=== PATIENT | male | born 1995 | race Two or more races ===

== ENCOUNTER 2016-06-22 19:16 | Emergency (ER) | payer MEDICAID ==
[~2016-06-22] VITALS: Ht 167.6 cm; Wt 68.0 kg
[~2016-06-22 19:16] MED LIST: CATAPRES0.1 MG ORAL; DEPAKOTE250 MG PO; PAROXETINE HC12.5 MG ORAL; TRILEPTAL600 MG PO
[2016-06-22 19:20] VITALS: BP 121/77
--- NOTE | 2016-06-22 19:28 | Emergency Room Report ---
History of Present Illness General Chief Complaint: Seizure Source: EMS (LAILA ERIC D.O.) Present Illness HPI Patient presents with reports of seizure activity This was witnessed patient has a history of seizure disorder Previous record review reveals seizure at [facility] in September patient at that time was apparently on Depakote At this time patient is postictal and cannot provide full history History of present illness the stay limited secondary to this No reports of any obvious trauma at the scene no reports of vomiting or hematomas (LAILA ERIC.Matilde) Allergies: Coded Allergies: No Known Allergies (Unverified , 09/24/15) Patient History Past Medical History: see triage record Pertinent Family History: none Reviewed Nursing Documentation: PMH: Agreed, PSxH: Agreed (LAILA ERIC D.O.) Nursing Documentation-PMH Hx Seizures: Yes (LAILA ERIC D.O.) Review of Systems All Other Systems: negative except mentioned in HPI (LAILA ERIC D.O.) Physical Exam Vital Signs Date Time Temp Pulse Resp B/P Pulse Ox O2 Delivery O2 Flow Rate FiO2 06/22/16 19:13 120 12 135/87 99 Room Air Sp02 EP Interpretation: reviewed, normal General Appearance: no apparent distress Head: normocephalic, atraumatic Eyes: bilateral eye EOMI, bilateral eye PERRL ENT: hearing grossly normal, normal pharynx, TMs + canals normal, uvula midline Neck: full range of motion, supple, no meningismus, no bony tend Respiratory: lungs clear, normal breath sounds, no rhonchi, no respiratory distress, no retraction, no accessory muscle use Cardiovascular #1: normal peripheral pulses, regular rate, rhythm, no edema, no gallop, no JVD, no murmur Gastrointestinal: normal bowel sounds, non tender, soft, no mass, no organomegaly, non-distended, no guarding, no hernia, no pulsatile mass, no rebound Genitourinary: no CVA tenderness Musculoskeletal: normal inspection Neurologic: oriented x3, responsive, gas line repairer III-XII nml as tested, motor strength/ tone normal, sensory intact Psychiatric: mood/affect normal Skin: normal color, no rash, warm/dry, palpation normal Lymphatic: normal inspection, no adenopathy (LAILA ERIC.Matilde) Procedures Critical Care Time Critical Care Time Total Critical Care Time: 45 min bedside evaluation and treatment excludes procedures (EKG). Reason for critical care: sedation for CT, multiple evaluations, rectal bleed, pneumonia, nasal FB Possible complications: hypotension, hypertension, [place], shock, arrhythmias, metabolic acidosis, end organ damage, respiratory failure. Interventions: restraints, sedation, IV resuscitation, antibiotics, IV antiepileptics, discussion with Americo and family, eval of nasal foreign body Course: Patient signed out for CT. Unable to perform due to movement. Assessed with autism and performing self mutilation with rectal bleeding. Restrained and sedated. PO meds changed to IV. Fever noted. Evaluation revealed pneumonia. Fluid resuscitation and antibiotics started. CT with nasal FB - unable to remove safely - better for ENT eval. Repeated self mutilation - different restraints. Discussion with Americo MARKS and family/ real estate investment analyst. Consultations: nursing staff, EMS, family Performed by: Dr. Wyatt Tolerated well condition = serious (Killian Wyatt M.D.) Medical Decision Making Diagnostic Impression: Primary Impression: Epileptic seizure, generalized Additional Impressions: Intractable seizure disorder Pneumonia Qualified Codes: J18.1 - Lobar pneumonia, unspecified organism Self-inflicted rectal trauma Nasal foreign body Qualified Codes: T17.1XXA - Foreign body in nostril, initial encounter Autism Anemia Qualified Codes: D64.9 - Anemia, unspecified ER Course Patient's family has arrived she reports that They were at [facility] early this morning patient was discharged just about half an hour prior to his presentation to this hospital She is extremely concerned about the multiple breakthrough seizures She feel the patient has been taking his medications Otherwise no reports of any fall or trauma Labs Test 06/22/16 19:50 White Blood Count 13.3 K/UL (4.8-10.8) Red Blood Count 5.29 M/UL (4.70-6.10) Hemoglobin 8.8 G/DL (14.2-18.0) Hematocrit 31.9 % (42.0-52.0) Mean Corpuscular Volume 60 FL (80-99) Mean Corpuscular Hemoglobin 16.7 PG (27.0-31.0) Mean Corpuscular Hemoglobin Concent 27.7 G/DL (32.0-36.0) Red Cell Distribution Width 16.0 % (11.6-14.8) Platelet Count 304 K/UL (150-450) Mean Platelet Volume 6.6 FL (6.5-10.1) Neutrophils (%) (Auto) 76.3 % (45.0-75.0) Lymphocytes (%) (Auto) 15.1 % (20.0-45.0) Monocytes (%) (Auto) 6.9 % (1.0-10.0) Eosinophils (%) (Auto) 0.5 % (0.0-3.0) Basophils (%) (Auto) 1.1 % (0.0-2.0) Sodium Level 144 mEQ/L (135-145) Potassium Level 3.9 mEQ/L (3.4-4.9) Chloride Level 99 mEQ/L (98-107) Carbon Dioxide Level 22 mEQ/L (20-30) Anion Gap 23 (5-15) Blood Urea Nitrogen 13 mg/dL (7-23) Creatinine 0.7 mg/dL (0.7-1.2) Estimat Glomerular Filtration Rate > 60 mL/min (>60) Glucose Level 81 mg/dL (74-106) Calcium Level 9.3 mg/dL (8.6-10.2) Total Bilirubin < 0.2 mg/dL (0.0-1.2) Aspartate Amino Transf (AST/SGOT) 16 U/L (5-40) Alanine Aminotransferase (ALT/SGPT) 6 U/L (3-41) Alkaline Phosphatase 36 U/L (40-129) Total Protein 7.4 g/dL (6.6-8.7) Albumin 4.5 g/dL (3.5-5.2) Globulin 2.9 g/dL Albumin/Globulin Ratio 1.5 (1.0-2.7) Urine Opiates Screen Negative (NEGATIVE) Urine Barbiturates Screen Negative (NEGATIVE) Valproic Acid (Depakene) Level 38 ug/mL (50-100) Phencyclidine (PCP) Screen Negative (NEGATIVE) Urine Amphetamines Screen Negative (NEGATIVE) Urine Benzodiazepines Screen Negative (NEGATIVE) Urine Cocaine Screen Negative (NEGATIVE) Urine Marijuana (THC) Screen Negative (NEGATIVE) (LAILA ERIC D.O.) ER Course Signed out to have CT done. I inquired and found that CT was not going to be done as he was moving. Will give versed to perform CT. Patient found fingering his rectum and with some bleeding. Autistic. Repeating temp (persistent tachycardia) and restraining patient. Patient with fever. BC, tylenol lactate, CXR ordered. CXR with L infiltrate. Rocefin also ordered. Lactate normal, but aggressive fluid resuscitation ordered with decreased tachycardia. Versed ordered in order to complete CT scan. CT with screw in nose. Unable to clearly identify by exam. Unable to remove ( poor cooperation). Should be done by ENT. Depakote IV. Again mutilating rectum - mitten ordered. Discussed with Dr. Jac Driscoll. VS improved. Transfer Americo ASHFORD. (Killian Wyatt M.D.) Rhythm Strip Diag. Results EP Interpretation: yes Rate: 110 Rhythm: no PVC's, no ectopy, other - sinus tach (LAILA ERIC D.O.) Rhythm: no PVC's, no ectopy, other - ST (Killian Wyatt M.D.) Chest X-Ray Diagnostic Results EP Interpretation: Yes Findings: no effusion, no pneumothorax, other - L infiltrate Number of Views: 1 (Killian Wyatt M.D.) CT/MRI/US Diagnostic Results CT/MRI/US Diagnostic Results : Imaging Test Ordered: head Impression Impression: Negative for acute intracranial bleed or mass effect Screw within the left nasal fossa (Killian Wyatt M.D.) Last Vital Signs Date Time Temp Pulse Resp B/P Pulse Ox O2 Delivery O2 Flow Rate FiO2 06/22/16 19:13 120 12 135/87 99 Room Air Status: improved (LAILA ERIC D.O.) Last Vital Signs Date Time Temp Pulse Resp B/P Pulse Ox O2 Delivery O2 Flow Rate FiO2 06/23/16 04:44 97.7 107 17 117/96 96 Room Air Status: improved (Killian Wyatt M.D.) Disposition: ER [facility] Condition: Serious - stable for transfer LAILA ERIC D.O. Jun 22, 2016 19:28 Killian Wyatt M.D. Jun 22, 2016 22:49
[2016-06-22] MEDS ORDERED: LORazepam Inj 2mg/ml 1ml IV ONE (19:30)
[2016-06-22] MEDS ORDERED: levETIRAcetam 500 MG in D5W 110 ML IVPB ONE (19:30)
[2016-06-22] MEDS ORDERED: levETIRAcetam 500mg vial IV ONE (19:49)
[2016-06-22 20:01] LABS: BASOPHILS % (AUTO) 1.1 % (0.0-2.0); EOSINOPHILS % (AUTO) 0.5 % (0.0-3.0); LYMPHOCYTES % (AUTO) 15.1 % (20.0-45.0); MEAN CORPUSCULAR HEMOGLOBIN 16.7 PG (27.0-31.0); MEAN CORPUSCULAR HGB CONC 27.7 G/DL (32.0-36.0); MEAN CORPUSCULAR VOLUME 60 FL (80-99); MEAN PLATELET VOLUME 6.6 FL (6.5-10.1); MONOCYTES % (AUTO) 6.9 % (1.0-10.0); NEUTROPHILS % (AUTO) 76.3 % (45.0-75.0); PLATELET COUNT 304 K/UL (150-450); RED BLOOD COUNT 5.29 M/UL (4.70-6.10); WHITE BLOOD COUNT 13.3 K/UL (4.8-10.8)
[2016-06-22 20:19] LABS: ALANINE AMINOTRANSFERASE 6 U/L (3-41); ALBUMIN/GLOBULIN RATIO 1.5 (1.0-2.7); ASPARTATE AMINO TRANSFERASE 16 U/L (5-40); CALCIUM 9.3 mg/dL (8.6-10.2); CARBON DIOXIDE 22 mEQ/L (20-30); CHLORIDE 99 mEQ/L (98-107); CREATININE 0.7 mg/dL (0.7-1.2); GLOMERULAR FILTRATION RATE > 60 mL/min (>60); HEMOLYSIS 8; POTASSIUM 3.9 mEQ/L (3.4-4.9); SODIUM 144 mEQ/L (135-145); TOTAL PROTEIN 7.4 g/dL (6.6-8.7); VALPROIC ACID 38 ug/mL (50-100)
[2016-06-22 20:20] LABS: ANION GAP 23 (5-15)
[2016-06-22] MEDS ORDERED: Depakote 500mg tab ORAL ONE (20:45)
[2016-06-22 21:20] VITALS: BP 118/75
[2016-06-22] MEDS ORDERED: Midazolam 2mg/2ml Inj IVP ONE ×2 (23:00→23:45)
[2016-06-22] MEDS ORDERED: Acetaminophen 650 MG SUPP RECTAL ONE (23:15)
[2016-06-22] MEDS ORDERED: cefTRIAXone 2 GM in NS 110 ML IVPB ONE (23:15)
[2016-06-22] MEDS ORDERED: Valproate Sodium INJ 500 MG in D5W 55 ML IV ONE (23:15)
[2016-06-22 23:20] VITALS: BP 125/71
[2016-06-23] MEDS ORDERED: Midazolam 2mg/2ml Inj IVP ONE (01:15)
[2016-06-23 01:20] VITALS: BP 118/73
[2016-06-23 03:20] VITALS: BP 125/77
[2016-06-23 04:44] VITALS: BP 117/96
--- NOTE | 2016-06-23 11:03 | Diagnostic Imaging Report ---
Indication: Seizure, altered middle status Technique: Continuous helical CT scanning of the head was performed without intravenous contrast material. Axial and coronal 5 mm sections were generated. Radiation dose was minimized using automated exposure control Dose: Total Dose Length Product - DLP [address] Dose Index - CTDIvol(s) 70.38 mGy. Comparison: 09/24/2015 Findings: No acute hemorrhage or edema. No mass effect or midline shift. Normal horton-white differentiation. Normal size ventricles and extra-axial CSF spaces. Intact calvarium. Visualized orbits and sinuses are unremarkable. There a metallic screw within the left nasal passage. This is at the floor of the nasal fossa, does not appear to penetrate any structures. This was not evident previously. Other findings are unchanged Impression: Negative for acute intracranial bleed or mass effect Screw within the left nasal fossa This agrees with the preliminary interpretation provided overnight by [facility]erad[facility] service. The CT scanner at [facility] is accredited by the [employer] and the scans are performed using protocols designed to limit radiation exposure to as low as reasonably achievable to attain images of sufficient resolution adequate for diagnostic evaluation.
--- NOTE | 2016-06-23 14:48 | Diagnostic Imaging Report ---
Indication: Chest pain Technique: One view of the chest Comparison: none Findings: Patient is markedly rotated to the right. Per technologist, patient was unable hold still Opacity projected over the left lateral lung base appears to be mostly osseous, may reflect old healed rib trauma. Underlying parenchymal disease not excludable. The remainder the lungs and pleural spaces are clear. Heart size is normal Impression: Left lateral basilar opacity, probably secondary to prior rib trauma, but parenchymal infiltrates are not excludable. Consider followup PA and lateral chest radiography with better positioning This agrees with the preliminary interpretation provided by the emergency room physician
== END 2016-06-23 04:44 | disposition short-term general hospital (02) ==
LOC: EDBD 19:16 → EMR 19:47
DX: J18.1 Lobar pneumonia, unspecified organism (principal); G40.419 Other generalized epilepsy and epileptic syndromes, intractable, without status epilepticus; D64.9 Anemia, unspecified; T17.1XXA Foreign body in nostril, initial encounter; F84.0 Autistic disorder; Z78.1 Physical restraint status; K62.5 Hemorrhage of anus and rectum; S36.69XA Other injury of rectum, initial encounter; X83.8XXA Intentional self-harm by other specified means, initial encounter; Y92.9 Unspecified place or not applicable; Y99.8 Other external cause status
CPT/HCPCS: 36415; 70450; 71010; 80053; 80164; 80300; 83605; 85025; 87040; 96360; 96361; 96374; 96375; 99291; J0696; J1953; J2250

== ENCOUNTER 2017-04-11 20:37 | Emergency (ER) | payer MEDICAID ==
[~2017-04-11] VITALS: Ht 170.2 cm; Wt 68.0 kg
[2017-04-11 20:45] VITALS: BP 130/90
[2017-04-11] MEDS ORDERED: LORazepam Inj 2mg/ml 1ml IV ONE (21:00)
[2017-04-11 21:10] LABS: BASOPHILS % (AUTO) 2.7 % (0.0-2.0); EOSINOPHILS % (AUTO) 1.8 % (0.0-3.0); HEMATOCRIT 35.7 % (42.0-52.0); HEMOGLOBIN 10.3 G/DL (14.2-18.0); LYMPHOCYTES % (AUTO) 39.9 % (20.0-45.0); MEAN CORPUSCULAR VOLUME 62 FL (80-99); MONOCYTES % (AUTO) 5.5 % (1.0-10.0); NEUTROPHILS % (AUTO) 50.1 % (45.0-75.0); PLATELET COUNT 235 K/UL (150-450); RED BLOOD COUNT 5.73 M/UL (4.70-6.10); RED CELL DISTRIBUTION WIDTH 16.3 % (11.6-14.8)
[2017-04-11 21:15] LABS: ANION GAP 11 mmol/L (5-15); BLOOD UREA NITROGEN 13 mg/dL (7-18); CALCIUM 9.6 MG/DL (8.5-10.1); CARBON DIOXIDE 23 MMOL/L (21-32); CHLORIDE 105 MMOL/L (98-107); CREATININE 0.7 MG/DL (0.55-1.30); POTASSIUM 4.6 MMOL/L (3.5-5.1); SODIUM 139 MMOL/L (136-145)
[2017-04-11 21:22] LABS: ALANINE AMINOTRANSFERASE 29 U/L (12-78); ALBUMIN 3.8 G/DL (3.4-5.0); ALBUMIN/GLOBULIN RATIO 0.9 (1.0-2.7); ALKALINE PHOSPHATASE 43 U/L (46-116); ASPARTATE AMINO TRANSFERASE 22 U/L (15-37); BILIRUBIN,TOTAL 0.2 MG/DL (0.2-1.0)
[2017-04-11 21:45] VITALS: BP 128/82
[2017-04-11] MEDS ORDERED: DIASTAT ACUDIA1 EAC1 RC (22:16)
--- NOTE | 2017-04-11 22:16 | Emergency Room Report ---
Physical Exam Vital Signs Date Time Temp Pulse Resp B/P (MAP) Pulse Ox O2 Delivery O2 Flow Rate FiO2 04/11/17 20:25 98.1 80 16 130/90 99 Sp02 EP Interpretation: reviewed, normal General Appearance: well appearing, no apparent distress, alert Head: normocephalic, atraumatic Eyes: bilateral eye PERRL, bilateral eye EOMI ENT: hearing grossly normal, normal pharynx Neck: full range of motion, supple, no meningismus Respiratory: chest non-tender, lungs clear, normal breath sounds Cardiovascular #1: regular rate, rhythm, no murmur Gastrointestinal: normal bowel sounds, non tender, no mass, no organomegaly, no bruit, non-distended Musculoskeletal: back normal, gait/station normal, normal range of motion Psychiatric: mood/affect normal Skin: warm/dry Medical Decision Making Diagnostic Impression: Primary Impression: Seizure disorder ER Course Patient signed out to me for seizure. This child has autism and seizure. He get seizure every 6 months or so. Mom said his back to baseline. Seizures usually last about a minute. Depakote level is therapeutic. I will discharge with rectal diazepam and case of status seizure or prolonged seizure. Last Vital Signs Date Time Temp Pulse Resp B/P (MAP) Pulse Ox O2 Delivery O2 Flow Rate FiO2 04/11/17 20:25 98.1 80 16 130/90 99 Status: improved Disposition: HOME, SELF-CARE Condition: Improved Scripts Diazepam (DIASTAT ACUDIAL) 1 Each Kit 1 EACH RC ONCE for For Seizures, #1 KIT Prov: CAR BOUDREAUX M.D. 04/11/17 Additional Instructions: - Depakote level therapeutic - Breakthru seizure - Follow up with neurologist in 1-2 days CAR BOUDREAUX M.D. Apr 11, 2017 22:16
[2017-04-11 22:35] VITALS: BP 128/82
--- NOTE | 2017-04-13 18:26 | Cardiology Report ---
APPROVED REPORT EKG Measurement Heart [id number] FL [id number] Normal sinus rhythm Normal ECG
--- NOTE | 2017-04-14 00:42 | Emergency Room Report ---
History of Present Illness General Chief Complaint: Seizure Source: Patient, EMS Present Illness HPI 21-year-old male with witnessed seizure at home episode lasted 1 minute. No history of seizures, history of developmental delay. Takes valproic acid, has been here previously for breakthrough seizures as well. No trauma after seizure. Mother is bedside. She was not given any antiseizure medication by EMS. Allergies: Coded Allergies: No Known Allergies (Unverified , 09/24/15) Patient History Past Medical History: seizures Past Surgical History: none Pertinent Family History: none Social History: Denies: smoking, alcohol use, drug use Immunizations: UTD Reviewed Nursing Documentation: PMH: Agreed, PSxH: Agreed Nursing Documentation-PMH History Of Psychiatric Problem: Yes - Autism Hx Seizures: Yes Review of Systems All Other Systems: limited - seizure, post-ictal, developmentally delayed Physical Exam Vital Signs Date Time Temp Pulse Resp B/P (MAP) Pulse Ox O2 Delivery O2 Flow Rate FiO2 04/11/17 20:25 98.1 80 16 130/90 99 04/11/17 20:45 Room Air 98 Sp02 EP Interpretation: reviewed, normal General Appearance: normal inspection, well appearing, alert, GCS 15, non-toxic , other - agitated, Postictal Head: normocephalic, atraumatic Eyes: bilateral eye PERRL, bilateral eye EOMI ENT: normal ENT inspection, hearing grossly normal, normal pharynx, no angioedema, normal voice, TMs + canals normal, uvula midline, moist mucus membranes Neck: normal inspection, full range of motion, supple, thyroid normal, no meningismus, no bony tend Respiratory: normal inspection, lungs clear, normal breath sounds, no rhonchi, no respiratory distress, no retraction, no accessory muscle use, no wheezing, speaking full sentences Cardiovascular #1: regular rate, rhythm, no edema, no JVD, normal capillary refill Gastrointestinal: normal inspection, normal bowel sounds, non tender, soft, no mass, no peritonitis, non-distended, no guarding, no hernia, no pulsatile mass Genitourinary: no CVA tenderness Musculoskeletal: normal inspection, back normal, normal range of motion, no calf tenderness, pelvis stable, Shawn's Sign negative Neurologic: normal inspection, alert, responsive, mold dresser III-XII nml as tested, motor strength/tone normal, cerebellar normal, normal gait, speech normal Psychiatric: normal inspection, judgement/insight normal, mood/affect normal, no suicidal/homicidal ideation, no delusions Skin: normal inspection, normal color, no rash Lymphatic: normal inspection, no adenopathy Medical Decision Making Diagnostic Impression: Primary Impression: Seizure disorder ER Course Vital signs stable, afebrile. No focal neurological deficits. Patient was agitated, postictal, required low-dose Ativan IV he did not have additional seizures here. Approach acid level within normal limits, therapeutic Signed out to Dr Mccall at 10pm to furer monitor patient - if no additional seizures, can likely be DCed home with mother Rhythm Strip Diag. Results EP Interpretation: yes Rate: 90 Rhythm: NSR, no PVC's, no ectopy Last Vital Signs Date Time Temp Pulse Resp B/P (MAP) Pulse Ox O2 Delivery O2 Flow Rate FiO2 04/11/17 22:35 98.3 82 16 128/82 98 Room Air 98 Status: improved Disposition: HOME, SELF-CARE Condition: Improved Scripts Diazepam (DIASTAT ACUDIAL) 1 Each Kit 1 EACH ONCE for For Seizures, #1 KIT Prov: CAR MCCALL M.D. 04/11/17 Referrals: [facility] (PCP) Patient Instructions: Seizure, Adult Additional Instructions: - Depakote level therapeutic - Breakthru seizure - Follow up with neurologist in 1-2 days ALEXANDRA SKELTON M.D. Apr 14, 2017 00:42
== END 2017-04-11 22:35 | disposition home or self-care (01) ==
LOC: EDBD 20:37 → EMR 22:10
DX: G40.909 Epilepsy, unspecified, not intractable, without status epilepticus (principal)
CPT/HCPCS: 36415; 80053; 80164; 85025; 93005; 96374; 99284